=== PATIENT | female | born 1995 | race Caucasian/White ===

== ENCOUNTER 2022-11-18 14:49 | Emergency (ER) | payer BC, SELFPAY ==
[2022-11-18 15:20] VITALS: BP 154/76; PULSE 98; RESP 20; TEMP 37.1; O2SAT 100; BMI 49.9
--- NOTE | 2022-11-18 15:50 | EXP.UTC ---
Discharge Plan Disposition Patient Disposition: Home, Self-Care Condition: Good Prescriptions Prescriptions: New meclizine 25 mg tablet 25 mg PO TID PRN (Reason: dizziness) Qty: 15 0RF fluticasone propionate [Flonase Allergy Relief] 50 mcg/actuation spray,suspension 1 spray intranasal DAILY Qty: 16 0RF Rx Instructions: administer into each nostril amoxicillin 875 mg tablet 875 mg PO BID Qty: 20 0RF Referrals Follow up/Referrals: Provider,Referral, MD [Primary Care Provider] - See instructions Activity Restrictions/Add. Instructions Additional Instructions/Restrictions: Take medication as prescribed Follow up with your Family Doctor if no improvement or any worsening of symptoms Return if needed Follow up with your Family Doctor or Behavior Health if you have another panic attack and sooner to discuss treatment in the next 24-48 hour Straight to ER if any life threatening symptoms Clinical Impressions Clinical Impression: Infection of left inner ear Stand Alone Forms Stand Alone Forms: Work/School Release Instructions Patient Instructions: DI for Vertigo, Vertigo, Amoxicillin, Meclizine Discharge ED Provider: Sue Grayson [facility] General Stated complaint: dizzy X 5 days, panic attacks Mode of Arrival: Ambulatory Source of Information: Patient Limitations: No Limitations Time Seen by Provider: 11/18/22 15:50 Description of Symptoms (Recalled from Triage Doc. by RN): dizziness, blurry vision, brain fog , and panic attacks HEENT Symptoms (Recalled from RN notes): Yes Resp Symptoms (Recalled from RN notes): No Skin Symptoms (Recalled from RN notes): No MS Symptoms (Recalled from RN notes): No Functional Status (Recalled from RN notes): n/a History of Present Illness Provider Complaint: Patient states that she has been having panic attacks on and off for the last 5 days States that she has been a little dizzy and feels off balance when she moves or bends and when that happens it makes her have a panic attack because she is scared States that when they hit she breaths heavy, vision is blurry at times and feels like she is in a fog states that she is not having a panic attack today but still having some dizziness when she moves and feels like the room is spinning around her Denies thoughts of suicide or hurting others Related Data Previous Rx's Medication Instructions Recorded amoxicillin 875 mg tablet 875 mg PO BID #20 tabs 11/18/22 fluticasone propionate 50 1 spray intranasal DAILY #16 grams 11/18/22 mcg/actuation nasal spray,suspension (Flonase Allergy Relief) meclizine 25 mg tablet 25 mg PO TID PRN dizziness #15 tabs 11/18/22 Allergies Allergy/AdvReac Type Severity Reaction Status Date / Time No Known Allergies Allergy Verified 11/18/22 15:41 Worker's Comp Is this a Worker's Comp case?: No [facility] Disclaimer: The information contained in this section may have been updated after the patient was seen, as this information can be updated by other users. Social History Smoking Status: Never smoker alcohol intake: never current occupational status: employed Travel in the last 8 weeks: None ROS Obtained: Yes All systems reviewed & no additional complaints except as documented and Yes Systems reviewed as appropriate & no additional complaints except as documented Constitutional Constitutional: Reports system reviewed and no additional complaints, except as documented, Reports as per HPI, Denies body ache, Denies chills, Denies fever(s) and Denies headache(s) Eyes Eyes: Reports system reviewed and no additional complaints, except as documented, Reports as per HPI and Reports blurry vision (at times when she is having a panic attack) ENT Ears, Nose, Mouth, and Throat: Reports system reviewed and no additional complaints, except as documented, Reports as per HPI, Reports disequilibrium (if she moves or bends too quickly), Reports dizziness (at times when she move
[2022-11-18 16:19] VITALS: BP 156/76; PULSE 98; RESP 20; TEMP 37.1; O2SAT 100
== END 2022-11-18 16:18 | disposition home or self-care (01) ==
PROVIDERS: Emergency Provider Nurse Practitioner
DX: H83.02 Labyrinthitis, left ear (principal)
CPT/HCPCS: 99212; 99213; G0463